=== PATIENT | male | born 1960 | race Caucasian/White ===

== ENCOUNTER 2017-11-23 16:33 | Emergency (ER) | payer MEDICARE, OTHER ==
[~2017-11-23] VITALS: Ht 175.3 cm; Wt 69.5 kg
[~2017-11-23 16:33] MED LIST: ALPR0.25 PO; DIAZ5TAB PO; IBUP-1221 PO; PARO10TA56 PO; QUET25TA PO; ZIPR20CA2 PO
[2017-11-23 17:16] VITALS: BP 126/97
[2017-11-23 17:41] LABS: RAPID INFLUENZA A Negative (Negative); RAPID INFLUENZA B Negative (Negative)
[2017-11-23] MEDS ORDERED: AZITHROMYCIN 250 MG TABLET ONE (18:56)
[2017-11-23] MEDS ORDERED: AZITHROMYCIN 500 MG TABLET PO ONE (19:00)
== END 2017-11-23 19:02 | disposition home or self-care (01) ==
LOC: ED 17:37
DX: J20.9 Acute bronchitis, unspecified (principal); F17.210 Nicotine dependence, cigarettes, uncomplicated
CPT/HCPCS: 71010; 87400; 99285

== ENCOUNTER 2017-11-24 18:36 | Emergency (ER) | payer MEDICARE ==
[~2017-11-24] VITALS: Ht 152.4 cm; Wt 68.6 kg
[2017-11-24] MEDS ORDERED: ACETAMINOPHEN 325 MG TABLET ONE (19:47)
[2017-11-24 19:55] VITALS: BP 138/78
[2017-11-24] MEDS ORDERED: ACETAMINOPHEN 325 MG TABLET PO ONE (20:00)
== END 2017-11-24 20:00 | disposition home or self-care (01) ==
LOC: ED 19:54
DX: J06.9 Acute upper respiratory infection, unspecified (principal)
CPT/HCPCS: 99282

== ENCOUNTER → 2018-01-17 | Outpatient (CLI) | payer MEDICARE ==
[2018-01-17 10:45] LABS: BASOPHILS # (AUTO) 0.02 x10^3/uL (0-0.1); BASOPHILS % (AUTO) 0 % (0-1); EOSINOPHILS # (AUTO) 0.09 x10^3/uL (0-0.4); EOSINOPHILS % (AUTO) 1 % (1-7); LYMPHOCYTES # (AUTO) 1.46 x10^3/uL (1-3.4); LYMPHOCYTES % (AUTO) 17 % (22-44); MD NO; MEAN CORPUSCULAR HEMOGLOBIN 29.9 pg (27.5-34.5); MEAN PLATELET VOLUME 8.3 fL (7.4-10.4); MONOCYTES # (AUTO) 0.59 x10^3/uL (0.2-0.8); MONOCYTES % (AUTO) 7 % (2-9); NEUTROPHILS # (AUTO) 6.37 x10^3/uL (1.8-6.8); NEUTROPHILS % (AUTO) 75 % (42-75); PLATELET COUNT 168 x10^3/uL (130-400); RED BLOOD COUNT 5.17 x10^6/uL (4.38-5.82); RED CELL DISTRIBUTION WIDTH 14.5 % (9.4-14.8)
[2018-01-17 10:56] LABS: CHLORIDE 108 mmol/L (98-107)
[2018-01-17 11:08] LABS: ALANINE AMINOTRANSFERASE 28 U/L (12-78); ALBUMIN 3.9 g/dL (3.4-5.0); ALKALINE PHOSPHATASE 65 U/L (45-117); ANION GAP 5 mmol/L (5-15); BILIRUBIN,TOTAL 0.6 mg/dL (0.2-1.0); CALCIUM 8.4 mg/dL (8.5-10.1); CHOL/HDL RATIO 5.4; CHOLESTEROL, TOTAL 151 mg/dL (140-239); CREATININE 1.08 mg/dL (0.7-1.3); HDL CHOL % 19 % (26-37); HDL CHOLESTEROL (DIRECT) 28 mg/dL (40-60); LDL CHOLESTEROL,CALCULATED 103 mg/dL (54-169); LDL/HDL RATIO 3.7 (0.5-3.0); PSA SCREEN 1.54 ng/mL (0.00-4.00); T4 (THYROXINE) 10.7 mcg/dL (4.5-12.1); TOTAL PROTEIN 7.3 g/dL (6.4-8.2); TRIGLYCERIDES 99 mg/dL (50-200); VLDL CHOLESTEROL 20 mg/dL (0-25)
[2018-01-17 12:00] LABS: MICROSCOPIC AUTO
[2018-01-17 12:01] LABS: CULTURE INDICATED? NO
== END | disposition home or self-care (01) ==
LOC: RAD 10:15
PROVIDERS: ATTEND Family Medicine
DX: Z12.5 Encounter for screening for malignant neoplasm of prostate (principal); J18.9 Pneumonia, unspecified organism; M25.50 Pain in unspecified joint; D64.9 Anemia, unspecified; R53.83 Other fatigue; I10 Essential (primary) hypertension; E03.9 Hypothyroidism, unspecified; N39.9 Disorder of urinary system, unspecified
CPT/HCPCS: 36415; 71046; 80053; 80061; 81001; 84436; 84443; 84481; 85025; G0103

== ENCOUNTER 2018-03-11 16:01 | Emergency (ER) | payer MEDICARE ==
[~2018-03-11] VITALS: Ht 175.3 cm; Wt 69.2 kg
[2018-03-11] MEDS ORDERED: SODIUM CHLORIDE FLUSH 10ML SYR IVF ONE (16:30)
[2018-03-11] MEDS ORDERED: ASPIRIN 81 MG TABLET CHEW PO ONE (16:30)
[2018-03-11 16:38] LABS: INTERNATIONAL NORMALIZED RATIO 0.98 (0.93-1.1); PROTHROMBIN TIME 10.1 Seconds (9.6-11.5)
[2018-03-11 16:43] LABS: ALANINE AMINOTRANSFERASE 41 U/L (12-78); ALBUMIN 4.1 g/dL (3.4-5.0); ANION GAP 8 mmol/L (5-15); CALCIUM 8.8 mg/dL (8.5-10.1); CHLORIDE 104 mmol/L (98-107); CREATININE 1.13 mg/dL (0.7-1.3)
[2018-03-11 16:47] LABS: ALKALINE PHOSPHATASE 62 U/L (45-117); BILIRUBIN,TOTAL 0.5 mg/dL (0.2-1.0); TOTAL PROTEIN 7.5 g/dL (6.4-8.2); TROPONIN I < 0.015 ng/mL (0.000-0.045)
[2018-03-11 16:54] LABS: BASOPHILS # (AUTO) 0.08 x10^3/uL (0-0.1); BASOPHILS % (AUTO) 1 % (0-1); EOSINOPHILS # (AUTO) 0.13 x10^3/uL (0-0.4); EOSINOPHILS % (AUTO) 2 % (1-7); LYMPHOCYTES # (AUTO) 1.88 x10^3/uL (1-3.4); LYMPHOCYTES % (AUTO) 22 % (22-44); MD SCAN; MEAN CORPUSCULAR HEMOGLOBIN 29.7 pg (27.5-34.5); MEAN CORPUSCULAR HGB CONC 33.9 g/dL (33.2-36.2); MEAN CORPUSCULAR VOLUME 87.6 fL (81-97); MEAN PLATELET VOLUME 9.6 fL (7.4-10.4); MONOCYTES # (AUTO) 0.62 x10^3/uL (0.2-0.8); MONOCYTES % (AUTO) 7 % (2-9); NEUTROPHILS # (AUTO) 5.98 x10^3/uL (1.8-6.8); NEUTROPHILS % (AUTO) 69 % (42-75); PLATELET COUNT 164 x10^3/uL (130-400); RED CELL DISTRIBUTION WIDTH 15.9 % (9.4-14.8)
[2018-03-11] MEDS ORDERED: ASPIRIN 81 MG TABLET CHEW ONE (17:42)
[2018-03-11 18:50] VITALS: BP 117/94
== END 2018-03-11 18:59 | disposition home or self-care (01) ==
LOC: ED 18:53
DX: J44.9 Chronic obstructive pulmonary disease, unspecified (principal); F41.9 Anxiety disorder, unspecified; G40.909 Epilepsy, unspecified, not intractable, without status epilepticus; Z87.891 Personal history of nicotine dependence
CPT/HCPCS: 36415; 71045; 80053; 84484; 85025; 85610; 93005; 99285

== ENCOUNTER 2018-04-08 17:49 | Emergency (ER) | payer MEDICARE ==
[~2018-04-08] VITALS: Ht 175.3 cm; Wt 72.7 kg
[2018-04-08 17:56] VITALS: BP 117/77
[2018-04-08] MEDS ORDERED: PARO10TA56 PO (18:43)
[2018-04-08] MEDS ORDERED: MUSCLE RELAXER (18:44)
[2018-04-08] MEDS ORDERED: KETOROLAC 30 MG/1 ML ONE (19:18)
[2018-04-08] MEDS ORDERED: HYDROcodone/APAP 5/325 TABLET ONE (19:18)
[2018-04-08] MEDS ORDERED: HYDROcodone/APAP 5/325 TABLET PO ONE (19:30)
[2018-04-08] MEDS ORDERED: KETOROLAC 30 MG/1 ML IM ONE (19:30)
== END 2018-04-08 19:47 | disposition home or self-care (01) ==
LOC: ED 19:41
DX: M51.36 Other intervertebral disc degeneration, lumbar region (principal); J44.9 Chronic obstructive pulmonary disease, unspecified; G40.909 Epilepsy, unspecified, not intractable, without status epilepticus
CPT/HCPCS: 72110; 96372; 99284; J1885

== ENCOUNTER 2018-10-15 12:37 | Emergency (ER) | payer MEDICARE ==
[~2018-10-15] VITALS: Ht 175.3 cm; Wt 70.0 kg
[~2018-10-15 12:37] MED LIST changes: +MUSCLE RELAXER
[2018-10-15] MEDS ORDERED: SODIUM CHLORIDE FLUSH 10ML SYR IVF ONE (14:00)
[2018-10-15 14:21] LABS: ALBUMIN 4.2 g/dL (3.4-5.0); ANION GAP 3 mmol/L (5-15); CALCIUM 8.6 mg/dL (8.5-10.1); CHLORIDE 106 mmol/L (98-107); CREATININE 1.01 mg/dL (0.7-1.3)
[2018-10-15 14:24] LABS: MICROSCOPIC NOT IND
[2018-10-15 14:41] LABS: CULTURE INDICATED? NO
[2018-10-15] MEDS ORDERED: OMNIPAQUE 350 MG/ML, 75ML BOTTLE ONE (15:02)
[2018-10-15 15:31] LABS: MEAN CORPUSCULAR HEMOGLOBIN 30.2 pg (27.5-34.5); MEAN CORPUSCULAR HGB CONC 33.8 g/dL (33.2-36.2); MEAN CORPUSCULAR VOLUME 89.3 fL (81-97); RED BLOOD COUNT 5.25 x10^6/uL (4.38-5.82)
[2018-10-15 15:32] LABS: MEAN PLATELET VOLUME 8.6 fL (7.4-10.4); PLATELET COUNT 196 x10^3/uL (130-400)
[2018-10-15 15:33] LABS: MD SCAN
[2018-10-15 15:34] LABS: BASOPHILS # (AUTO) 0.03 x10^3/uL (0-0.1); BASOPHILS % (AUTO) 0 % (0-1); EOSINOPHILS # (AUTO) 0.11 x10^3/uL (0-0.4); EOSINOPHILS % (AUTO) 1 % (1-7); LYMPHOCYTES % (AUTO) 15 % (22-44); MONOCYTES # (AUTO) 0.58 x10^3/uL (0.2-0.8); MONOCYTES % (AUTO) 5 % (2-9); NEUTROPHILS # (AUTO) 8.59 x10^3/uL (1.8-6.8); NEUTROPHILS % (AUTO) 78 % (42-75)
[2018-10-15 15:40] VITALS: BP 128/71
== END 2018-10-15 15:43 | disposition home or self-care (01) ==
LOC: ED 15:13
DX: J20.8 Acute bronchitis due to other specified organisms (principal); B34.9 Viral infection, unspecified
CPT/HCPCS: 36415; 71046; 71260; 80048; 81003; 82040; 85025; 99285; Q9967

== ENCOUNTER 2018-10-23 14:09 | Emergency (ER) | payer MEDICARE ==
[~2018-10-23] VITALS: Ht 175.3 cm; Wt 68.6 kg
[2018-10-23 15:00] LABS: BASOPHILS # (AUTO) 0.05 x10^3/uL (0-0.1); BASOPHILS % (AUTO) 1 % (0-1); EOSINOPHILS # (AUTO) 0.04 x10^3/uL (0-0.4); EOSINOPHILS % (AUTO) 0 % (1-7); LYMPHOCYTES % (AUTO) 13 % (22-44); MD NO; MEAN CORPUSCULAR HEMOGLOBIN 30.6 pg (27.5-34.5); MEAN PLATELET VOLUME 9.2 fL (7.4-10.4); MONOCYTES # (AUTO) 0.78 x10^3/uL (0.2-0.8); MONOCYTES % (AUTO) 7 % (2-9); NEUTROPHILS # (AUTO) 8.35 x10^3/uL (1.8-6.8); NEUTROPHILS % (AUTO) 79 % (42-75); PLATELET COUNT 175 x10^3/uL (130-400); RED BLOOD COUNT 5.39 x10^6/uL (4.38-5.82); RED CELL DISTRIBUTION WIDTH 14.8 % (9.4-14.8)
[2018-10-23 15:08] LABS: ALBUMIN 4.1 g/dL (3.4-5.0); ANION GAP 6 mmol/L (5-15); CALCIUM 8.5 mg/dL (8.5-10.1); CHLORIDE 107 mmol/L (98-107); CREATININE 1.24 mg/dL (0.7-1.3)
[2018-10-23 15:13] LABS: RAPID INFLUENZA A Negative (Negative); RAPID INFLUENZA B Negative (Negative)
[2018-10-23 15:42] VITALS: BP 124/88
== END 2018-10-23 15:44 | disposition home or self-care (01) ==
LOC: ED 14:39
DX: B34.9 Viral infection, unspecified (principal); J44.9 Chronic obstructive pulmonary disease, unspecified
CPT/HCPCS: 36415; 71046; 80048; 82040; 85025; 87400; 99284

== ENCOUNTER 2018-10-25 12:30 | Emergency (ER) | payer MEDICARE ==
[~2018-10-25] VITALS: Ht 175.3 cm; Wt 67.9 kg
[2018-10-25 13:24] LABS: MEAN CORPUSCULAR HEMOGLOBIN 29.8 pg (27.5-34.5); MEAN CORPUSCULAR HGB CONC 33.3 g/dL (33.2-36.2); MEAN CORPUSCULAR VOLUME 89.4 fL (81-97); MEAN PLATELET VOLUME 9.1 fL (7.4-10.4); PLATELET COUNT 178 x10^3/uL (130-400); RED BLOOD COUNT 5.23 x10^6/uL (4.38-5.82)
[2018-10-25 13:31] LABS: ALANINE AMINOTRANSFERASE 39 U/L (12-78); ALBUMIN 4.1 g/dL (3.4-5.0); ANION GAP 7 mmol/L (5-15); CALCIUM 8.4 mg/dL (8.5-10.1); CHLORIDE 107 mmol/L (98-107); CREATININE 1.06 mg/dL (0.7-1.3)
[2018-10-25 13:32] LABS: ALKALINE PHOSPHATASE 61 U/L (45-117); BILIRUBIN,TOTAL 0.7 mg/dL (0.2-1.0); TOTAL PROTEIN 7.4 g/dL (6.4-8.2)
[2018-10-25 13:38] LABS: BASOPHILS # (AUTO) 0.03 x10^3/uL (0-0.1); BASOPHILS % (AUTO) 0 % (0-1); EOSINOPHILS # (AUTO) 0.05 x10^3/uL (0-0.4); EOSINOPHILS % (AUTO) 0 % (1-7); LYMPHOCYTES % (AUTO) 12 % (22-44); MD SCAN; MONOCYTES # (AUTO) 0.51 x10^3/uL (0.2-0.8); MONOCYTES % (AUTO) 4 % (2-9); NEUTROPHILS # (AUTO) 11.58 x10^3/uL (1.8-6.8); NEUTROPHILS % (AUTO) 84 % (42-75)
[2018-10-25 14:18] VITALS: BP 139/88
[2018-10-25] MEDS ORDERED: HYDROcodone/APAP 5/325 TABLET PO ONE (14:30)
[2018-10-25 14:36] LABS: MICROSCOPIC NOT IND
[2018-10-25 14:45] LABS: CULTURE INDICATED? NO
[2018-10-25] MEDS ORDERED: HYDROcodone/APAP 5/325 TABLET ONE (15:00)
[2018-10-28] MEDS ORDERED: IBUP-1223 PO (14:03)
[2018-10-28] MEDS ORDERED: ALBU18HF IH (14:03)
== END 2018-10-25 15:45 | disposition home or self-care (01) ==
LOC: ED 15:00
DX: S39.012A Strain of muscle, fascia and tendon of lower back, initial encounter (principal); F17.200 Nicotine dependence, unspecified, uncomplicated; X58.XXXA Exposure to other specified factors, initial encounter; Y93.89 Activity, other specified; Y92.89 Other specified places as the place of occurrence of the external cause; Y99.8 Other external cause status; J44.9 Chronic obstructive pulmonary disease, unspecified
CPT/HCPCS: 36415; 80053; 81003; 85025; 99283

== ENCOUNTER 2018-12-11 09:17 | Emergency (ER) | payer MEDICARE ==
[~2018-12-11] VITALS: Ht 175.3 cm; Wt 66.9 kg
[~2018-12-11 09:17] MED LIST changes: +ALBU18HF IH; +IBUP-1223 PO
[2018-12-11 09:31] VITALS: BP 155/88
[2018-12-11] MEDS ORDERED: DIPHENHYDRAMINE 25 MG CAPSULE PO ONE (10:00)
[2018-12-11] MEDS ORDERED: FAMOTIDINE 20 MG TABLET PO ONE (10:00)
[2018-12-11] MEDS ORDERED: FAMOTIDINE 20 MG TABLET ONE (10:04)
[2018-12-11] MEDS ORDERED: DIPHENHYDRAMINE 25 MG CAPSULE ONE (10:04)
--- NOTE | 2018-12-11 10:06 | NUR ---
CONTACT WITH PT, 58 YR OLD MALE HERE WITH C/O "I HAVE THIS BURNING SENSATION, ITCHING. MOSTLY MY HEAD AREA DOWN IN MY NECK AND SHOULDER AREA" HAS BEEN WELL OVER A MONTH OR SO. PT THE NO VISIBLE RASH NOTED.
--- NOTE | 2018-12-11 10:20 | NUR ---
JUAN BRIGHT AT BEDSIDE.
[2018-12-11 10:31] LABS: MEAN CORPUSCULAR HEMOGLOBIN 30.6 pg (27.5-34.5); MEAN CORPUSCULAR HGB CONC 33.9 g/dL (33.2-36.2); MEAN CORPUSCULAR VOLUME 90.2 fL (81-97); MEAN PLATELET VOLUME 8.7 fL (7.4-10.4); PLATELET COUNT 146 x10^3/uL (130-400); RED BLOOD COUNT 5.24 x10^6/uL (4.38-5.82); RED CELL DISTRIBUTION WIDTH 14.9 % (9.4-14.8)
[2018-12-11 10:32] LABS: BASOPHILS # (AUTO) 0.05 x10^3/uL (0-0.1); BASOPHILS % (AUTO) 1 % (0-1); EOSINOPHILS # (AUTO) 0.07 x10^3/uL (0-0.4); EOSINOPHILS % (AUTO) 1 % (1-7); LYMPHOCYTES # (AUTO) 1.43 x10^3/uL (1-3.4); LYMPHOCYTES % (AUTO) 15 % (22-44); MD SCAN; MONOCYTES # (AUTO) 0.51 x10^3/uL (0.2-0.8); MONOCYTES % (AUTO) 6 % (2-9); NEUTROPHILS # (AUTO) 7.25 x10^3/uL (1.8-6.8); NEUTROPHILS % (AUTO) 78 % (42-75)
[2018-12-11 10:35] LABS: ALBUMIN 4.1 g/dL (3.4-5.0); ANION GAP 6 mmol/L (5-15); CALCIUM 8.8 mg/dL (8.5-10.1); CHLORIDE 106 mmol/L (98-107)
[2018-12-11 10:48] LABS: ALANINE AMINOTRANSFERASE 27 U/L (12-78); ALKALINE PHOSPHATASE 64 U/L (45-117); BILIRUBIN,TOTAL 0.8 mg/dL (0.2-1.0); CREATININE 0.99 mg/dL (0.7-1.3); TOTAL PROTEIN 7.4 g/dL (6.4-8.2)
--- NOTE | 2018-12-11 12:23 | NUR ---
FLOAT RN ASSISTING PRIMARY RN BENJAMIN WITH DISCHARGE ONLY. IN TO DISCHARGE PT, PT NOT IN ROOM, ELOPED. DISCUSSED WITH PRIMARY RN BENJAMIN AND DIRECTOR OF EMERGENCY NURSING MELINA CUELLAR. DISCUSSED WITH JUAN BRIGHT, AWARE. PT CALLED AT LISTED CONTACT NUMBER PER JUAN BRIGHT REQUEST AND MESSAGE LEFT FOR PT TO RETURN CALL. JUAN BRIGHT WOULD LIKE PT TO RETURN TO GET PRESCRIPTIONS FOR PT COMFORT. PRIMARY RN NOTIFIED OF POC, AND THAT PT WAS CALLED AND MSG LEFT.
== END 2018-12-11 12:27 | disposition left against medical advice (07) ==
LOC: ED 10:59
DX: L29.9 Pruritus, unspecified (principal); J44.9 Chronic obstructive pulmonary disease, unspecified; G40.909 Epilepsy, unspecified, not intractable, without status epilepticus
CPT/HCPCS: 36415; 80053; 85025; 99284; J7512; Q0163

== ENCOUNTER 2018-12-20 14:17 | Emergency (ER) | payer MEDICARE ==
[~2018-12-20] VITALS: Ht 175.3 cm; Wt 66.0 kg
[2018-12-20 14:23] VITALS: BP 119/82
[2018-12-20] MEDS ORDERED: KETOROLAC 30 MG/1 ML ONE (14:55)
[2018-12-20] MEDS ORDERED: METHOCARBAMOL 750 MG TABLET ONE (14:55)
[2018-12-20] MEDS ORDERED: METHOCARBAMOL 750 MG TABLET PO ONE (15:00)
[2018-12-20] MEDS ORDERED: KETOROLAC 30 MG/1 ML IM ONE (15:00)
== END 2018-12-20 16:25 | disposition home or self-care (01) ==
LOC: ED 14:41
DX: S33.5XXA Sprain of ligaments of lumbar spine, initial encounter (principal); J44.9 Chronic obstructive pulmonary disease, unspecified; F17.200 Nicotine dependence, unspecified, uncomplicated; Z85.841 Personal history of malignant neoplasm of brain; X58.XXXA Exposure to other specified factors, initial encounter; Y93.89 Activity, other specified; Y92.89 Other specified places as the place of occurrence of the external cause; Y99.8 Other external cause status
CPT/HCPCS: 72110; 96372; 99283; J1885

== ENCOUNTER 2018-12-31 15:30 | Emergency (ER) | payer MEDICARE ==
[~2018-12-31] VITALS: Ht 175.3 cm; Wt 67.1 kg
[2018-12-31] MEDS ORDERED: DIPHENHYDRAMINE 50 MG/ML, 1ML IVPush ONE (16:00)
[2018-12-31] MEDS ORDERED: METOCLOPRAMIDE 5 MG/ML, 2ML IVPush ONE (16:00)
[2018-12-31] MEDS ORDERED: SODIUM CHLORIDE FLUSH 10ML SYR IVF ONE (16:00)
[2018-12-31] MEDS ORDERED: DIPHENHYDRAMINE 50 MG/ML, 1ML ONE (16:23)
[2018-12-31] MEDS ORDERED: METOCLOPRAMIDE 5 MG/ML, 2ML ONE (16:23)
[2018-12-31 16:27] LABS: BASOPHILS # (AUTO) 0.02 x10^3/uL (0-0.1); BASOPHILS % (AUTO) 0 % (0-1); EOSINOPHILS # (AUTO) 0.09 x10^3/uL (0-0.4); EOSINOPHILS % (AUTO) 1 % (1-7); LYMPHOCYTES # (AUTO) 1.46 x10^3/uL (1-3.4); LYMPHOCYTES % (AUTO) 16 % (22-44); MD NO; MEAN CORPUSCULAR HEMOGLOBIN 30.6 pg (27.5-34.5); MEAN CORPUSCULAR HGB CONC 34.2 g/dL (33.2-36.2); MEAN CORPUSCULAR VOLUME 89.5 fL (81-97); MONOCYTES # (AUTO) 0.59 x10^3/uL (0.2-0.8); MONOCYTES % (AUTO) 6 % (2-9); NEUTROPHILS # (AUTO) 7.15 x10^3/uL (1.8-6.8); NEUTROPHILS % (AUTO) 77 % (42-75); PLATELET COUNT 150 x10^3/uL (130-400); RED BLOOD COUNT 4.96 x10^6/uL (4.38-5.82); RED CELL DISTRIBUTION WIDTH 15.3 % (9.4-14.8)
[2018-12-31 16:29] LABS: HCT (SEDRATE) 44.4 % (39.2-51.8)
[2018-12-31 16:34] LABS: ALBUMIN 3.9 g/dL (3.4-5.0); ANION GAP 7 mmol/L (5-15); CALCIUM 8.9 mg/dL (8.5-10.1); CHLORIDE 110 mmol/L (98-107); CREATININE 0.89 mg/dL (0.7-1.3)
[2018-12-31 17:24] VITALS: BP 109/74
--- NOTE | 2018-12-31 17:25 | NUR ---
GÓMEZ DECREASED TO 4/10 FROM 8/10. NO N/V, BURNING, OR ITCHING. VSS, PT READY FOR DISCHARGE.
== END 2018-12-31 17:53 | disposition home or self-care (01) ==
LOC: ED 17:47
DX: G44.221 Chronic tension-type headache, intractable (principal); H53.8 Other visual disturbances; J44.9 Chronic obstructive pulmonary disease, unspecified; F41.1 Generalized anxiety disorder; F32.9 Major depressive disorder, single episode, unspecified; G40.909 Epilepsy, unspecified, not intractable, without status epilepticus; F17.200 Nicotine dependence, unspecified, uncomplicated; G89.29 Other chronic pain
CPT/HCPCS: 36415; 70450; 80048; 82040; 85025; 85651; 96374; 96375; 99284; J1200; J2765

== ENCOUNTER 2019-11-30 14:01 | Emergency (ER) | payer MEDICARE ==
[~2019-11-30] VITALS: Ht 175.3 cm; Wt 70.0 kg
[~2019-11-30 14:01] MED LIST changes: +ACET325T26 PO; +CALC1TAB68 PO; +CEFU500T50 PO; -QUET25TA PO; +QUET25TA7 PO
[2019-11-30 15:08] VITALS: BP 118/83
== END 2019-11-30 15:59 | disposition home or self-care (01) ==
LOC: ED 15:53
DX: J01.80 Other acute sinusitis (principal); B97.89 Other viral agents as the cause of diseases classified elsewhere; G40.909 Epilepsy, unspecified, not intractable, without status epilepticus
CPT/HCPCS: 71046; 99283

== ENCOUNTER 2019-12-29 19:02 | Emergency (ER) | payer MEDICARE ==
[~2019-12-29] VITALS: Ht 177.8 cm; Wt 88.0 kg
[2019-12-29 19:57] LABS: ALANINE AMINOTRANSFERASE 18 U/L (12-78); ALBUMIN 3.8 g/dL (3.4-5.0); ANION GAP 9 mmol/L (5-15); CALCIUM 8.6 mg/dL (8.5-10.1); CHLORIDE 109 mmol/L (98-107); CREATININE 0.91 mg/dL (0.7-1.3)
[2019-12-29 20:00] LABS: ALKALINE PHOSPHATASE 49 U/L (45-117); BILIRUBIN,TOTAL 0.6 mg/dL (0.2-1.0); TOTAL PROTEIN 6.9 g/dL (6.4-8.2)
[2019-12-29 20:26] LABS: MEAN CORPUSCULAR HEMOGLOBIN 29.8 pg (27.5-34.5); MEAN CORPUSCULAR HGB CONC 33.7 g/dL (33.2-36.2); MEAN CORPUSCULAR VOLUME 88.5 fL (81-97); RED BLOOD COUNT 4.89 x10^6/uL (4.38-5.82); RED CELL DISTRIBUTION WIDTH 15.1 % (9.4-14.8)
[2019-12-29 20:29] LABS: BASOPHILS # (AUTO) 0.02 x10^3/uL (0-0.1); BASOPHILS % (AUTO) 1 % (0-1); EOSINOPHILS # (AUTO) 0.05 x10^3/uL (0-0.4); EOSINOPHILS % (AUTO) 1 % (1-7); LYMPHOCYTES # (AUTO) 0.92 x10^3/uL (1-3.4); LYMPHOCYTES % (AUTO) 22 % (22-44); MD MORPH REVIEW ONLY; MEAN PLATELET VOLUME 8.7 fL (7.4-10.4); MONOCYTES # (AUTO) 0.25 x10^3/uL (0.2-0.8); MONOCYTES % (AUTO) 6 % (2-9); NEUTROPHILS % (AUTO) 70 % (42-75)
[2019-12-29 20:31] LABS: PLATELET COUNT 180 x10^3/uL (130-400)
[2019-12-29 20:33] LABS: <RBC MORPHOLOGY> NORMAL
[2019-12-29 20:34] LABS: <PLATELET ESTIMATE> ADEQUATE; GIANT PLATELETS 1+; LARGE PLATELETS 1+
[2019-12-29 21:36] VITALS: BP 126/74
== END 2019-12-29 21:39 | disposition home or self-care (01) ==
LOC: ED 21:33
DX: F33.0 Major depressive disorder, recurrent, mild (principal); R11.2 Nausea with vomiting, unspecified; F10.10 Alcohol abuse, uncomplicated; J44.9 Chronic obstructive pulmonary disease, unspecified; F17.210 Nicotine dependence, cigarettes, uncomplicated; Y90.9 Presence of alcohol in blood, level not specified
CPT/HCPCS: 36415; 80053; 80307; 83690; 85025; 99284

== ENCOUNTER 2021-01-07 13:56 | Emergency (ER) | payer MEDICARE ==
[~2021-01-07] VITALS: Ht 175.3 cm; Wt 78.2 kg
--- NOTE | 2021-01-07 14:25 | NUR ---
PA and myself at bedside. [facility]. Pt removed of all belonignings. placed in seiure oprecautions on SPO2 and BP monitor. Given a cup of water.
--- NOTE | 2021-01-07 14:38 | NUR ---
pt away to xray with seizure pads in place
[2021-01-07 14:53] LABS: BASOPHILS % (AUTO) 0 % (0-1); EOSINOPHILS % (AUTO) 0 % (1-7); LYMPHOCYTES % (AUTO) 18 % (22-44); MEAN CORPUSCULAR HGB CONC 34.2 g/dL (33.2-36.2); MEAN PLATELET VOLUME 8.6 fL (7.4-10.4); MONOCYTES % (AUTO) 20 % (2-9); NEUTROPHILS % (AUTO) 61 % (42-75); PLATELET COUNT 93 x10^3/uL (130-400); RED BLOOD COUNT 5.11 x10^6/uL (4.38-5.82); RED CELL DISTRIBUTION WIDTH 15.3 % (9.4-14.8)
[2021-01-07 14:59] LABS: MD NO
[2021-01-07 15:04] LABS: ALANINE AMINOTRANSFERASE 33 U/L (12-78); ALBUMIN 4.4 g/dL (3.4-5.0); ANION GAP 8 mmol/L (5-15); CHLORIDE 108 mmol/L (98-107); CREATININE 1.15 mg/dL (0.7-1.3); SALICYLATE LEVEL 3.7 mg/dL (2.8-20.0)
[2021-01-07 15:06] LABS: ALKALINE PHOSPHATASE 57 U/L (45-117); BILIRUBIN,TOTAL 0.7 mg/dL (0.2-1.0); TOTAL PROTEIN 7.8 g/dL (6.4-8.2)
--- NOTE | 2021-01-07 15:10 | NUR ---
pt provided urine sample. vital signs checked. pt calm and cooperative
[2021-01-07 16:03] LABS: MICROSCOPIC AUTO
[2021-01-07 16:15] LABS: AMPHETAMINE SCREEN, URINE Negative (Negative); BARBITURATE SCREEN, URINE Negative (Negative); BENZODIAZEPINE SCREEN, URINE Negative (Negative); CANNABINOID SCREEN, URINE Negative (Negative); COCAINE SCREEN, URINE Negative (Negative); METHADONE SCREEN, URINE Negative (Negative); OPIATE SCREEN, URINE Negative (Negative)
--- NOTE | 2021-01-07 16:40 | NUR ---
TASK RN: PT PROVIDED WITH MEAL TRAY AT THIS TIME
[2021-01-07] MEDS ORDERED: DIAZ2TAB PO (17:10)
--- NOTE | 2021-01-07 17:52 | NUR ---
police liaison in patients room. pt aware of admission to [facility].
--- NOTE | 2021-01-07 17:55 | NUR ---
rapid covid received and sent.
--- NOTE | 2021-01-07 19:53 | NUR ---
REPORT GIVEN TO KEVIN WAGNER AT [facility]
--- NOTE | 2021-01-07 20:05 | NUR ---
PATIENT TRANSFERRED TO [facility] VIA WITH 2 RN'S. ALL PERSONAL BELONGINGS WITH PATIENT. AMBULATED TO WITH STEADY GAIT.
[2021-01-07 20:13] VITALS: BP 106/72
[2021-01-07] MEDS ORDERED: LORazepam 2 MG/ML, 1ML IVPush PRN (20:30)
[2021-01-08] MEDS ORDERED: IBUP-1223 PO (18:00)
== END 2021-01-07 20:17 ==
LOC: ED 14:50
DX: R56.9 Unspecified convulsions (principal); R41.9 Unspecified symptoms and signs involving cognitive functions and awareness; R00.0 Tachycardia, unspecified; J44.9 Chronic obstructive pulmonary disease, unspecified; F17.200 Nicotine dependence, unspecified, uncomplicated
CPT/HCPCS: 36415; 70450; 80053; 80299; 80307; 80320; 80329; 81001; 85025; 93005; 99285; G0480

== ENCOUNTER 2021-01-07 18:25 | Inpatient (IN) | payer MEDICARE ==
[~2021-01-07] VITALS: Ht 175.3 cm; Wt 78.6 kg
[~2021-01-07 18:25] MED LIST changes: +DIAZ2TAB PO
[2021-01-07 20:00] VITALS: BP 122/84
[2021-01-07] MEDS ORDERED: DOCUSATE 100 MG CAPSULE PO PRN (22:30)
[2021-01-07] MEDS ORDERED: NICOTINE 7 MG/24 HR PATCH.TD24 TD SCH (22:30)
[2021-01-07] MEDS ORDERED: POLYETHYLENE GLYCOL 17 GM PACKET PO PRN (22:30)
[2021-01-07] MEDS ORDERED: PLEASE ENTER HEIGHT AND WEIGHT MC SCH (22:30)
[2021-01-07] MEDS ORDERED: BISACODYL 10 MG SUPP PR PRN (22:30)
[2021-01-07] MEDS ORDERED: ACETAMINOPHEN 325 MG TABLET PO PRN (22:30)
[2021-01-07] MEDS ORDERED: ONDANSETRON ODT 4 MG PO PRN (22:30)
[2021-01-07 22:45] VITALS: BP 122/84
[2021-01-08] MEDS: HYDROXYZINE PAMOATE 50MG CAP PO PRN ×2 (03:55→20:05)
[2021-01-08 07:02] LABS: FREE T4 (FREE THYROXINE) 1.07 ng/dL (0.76-1.46); LDL/HDL RATIO 3.9 (0.5-3.0)
[2021-01-08 07:33] VITALS: BP 147/96
[2021-01-08] MEDS: NICOTINE 7 MG/24 HR PATCH.TD24 TD SCH (08:52)
[2021-01-08] MEDS: LIDODERM 5% PATCH TD SCH (13:41)
[2021-01-08] MEDS: IBUPROFEN 200 MG TABLET PO PRN (13:42)
[2021-01-08] MEDS ORDERED: IBUP-1223 PO (18:00)
[2021-01-08 19:45] VITALS: BP 110/78
[2021-01-09 07:27] VITALS: BP 126/82
[2021-01-09] MEDS: NICOTINE 7 MG/24 HR PATCH.TD24 TD SCH (09:17)
[2021-01-09] MEDS: IBUPROFEN 200 MG TABLET PO PRN ×2 (09:18→22:17)
[2021-01-09] MEDS: LIDODERM 5% PATCH TD SCH (13:25)
[2021-01-09] MEDS: LORazepam 1MG TABLET PO PRN (14:25)
[2021-01-09 19:35] VITALS: BP 111/74
[2021-01-10 07:26] VITALS: BP 128/86
[2021-01-10] MEDS: NICOTINE 7 MG/24 HR PATCH.TD24 TD SCH (08:36)
[2021-01-10] MEDS: LORazepam 1MG TABLET PO PRN (08:36)
[2021-01-10] MEDS: LIDODERM 5% PATCH TD SCH (12:28)
[2021-01-10] MEDS: IBUPROFEN 200 MG TABLET PO PRN (12:28)
[2021-01-10] MEDS: HYDROXYZINE PAMOATE 50MG CAP PO PRN (14:59)
[2021-01-10 19:44] VITALS: BP_SYST 116; BP_SYST 98; BP_DIAS 64; BP_DIAS 65
[2021-01-11 07:33] VITALS: BP 118/81
[2021-01-11] MEDS: NICOTINE 7 MG/24 HR PATCH.TD24 TD SCH (08:08)
[2021-01-11] MEDS: PAROXETINE 10 MG TABLET PO SCH (08:08)
[2021-01-11] MEDS: HYDROXYZINE PAMOATE 50MG CAP PO PRN (08:08)
[2021-01-11] MEDS: LORazepam 1MG TABLET PO PRN ×2 (11:48→20:19)
[2021-01-11] MEDS: LIDODERM 5% PATCH TD SCH (13:44)
[2021-01-11 19:15] VITALS: BP 106/74
[2021-01-12 07:40] VITALS: BP 121/83
[2021-01-12] MEDS: PAROXETINE 10 MG TABLET PO SCH (07:55)
[2021-01-12] MEDS: NICOTINE 7 MG/24 HR PATCH.TD24 TD SCH (07:56)
[2021-01-12] MEDS: IBUPROFEN 200 MG TABLET PO PRN ×2 (10:08→21:07)
[2021-01-12] MEDS: LORazepam 1MG TABLET PO PRN (10:53)
[2021-01-12] MEDS: LIDODERM 5% PATCH TD SCH (12:57)
[2021-01-12 20:02] VITALS: BP 143/90
[2021-01-12] MEDS: HYDROXYZINE PAMOATE 50MG CAP PO PRN (21:07)
[2021-01-13 07:24] VITALS: BP 119/78
[2021-01-13] MEDS: NICOTINE 7 MG/24 HR PATCH.TD24 TD SCH (07:43)
[2021-01-13] MEDS: PAROXETINE 20 MG TABLET PO SCH (07:43)
[2021-01-13] MEDS: IBUPROFEN 200 MG TABLET PO PRN ×2 (09:10→19:47)
[2021-01-13] MEDS: LIDODERM 5% PATCH TD SCH (12:52)
[2021-01-13] MEDS: HYDROXYZINE PAMOATE 50MG CAP PO PRN ×2 (14:58→19:46)
[2021-01-13 19:10] VITALS: BP 101/64
[2021-01-14 07:10] VITALS: BP 143/89
[2021-01-14] MEDS: IBUPROFEN 200 MG TABLET PO PRN ×2 (07:54→21:04)
[2021-01-14] MEDS: NICOTINE 7 MG/24 HR PATCH.TD24 TD SCH (07:54)
[2021-01-14] MEDS: PAROXETINE 20 MG TABLET PO SCH (07:54)
[2021-01-14] MEDS: LORazepam 1MG TABLET PO PRN ×2 (13:41→21:04)
[2021-01-14] MEDS: LIDODERM 5% PATCH TD SCH (13:41)
[2021-01-14 19:46] VITALS: BP 129/86
[2021-01-15] MEDS: IBUPROFEN 200 MG TABLET PO PRN ×2 (07:52→19:28)
[2021-01-15] MEDS: PAROXETINE 20 MG TABLET PO SCH (07:52)
[2021-01-15] MEDS: NICOTINE 7 MG/24 HR PATCH.TD24 TD SCH (07:53)
[2021-01-15 08:00] VITALS: BP 139/99
[2021-01-15] MEDS: LORazepam 1MG TABLET PO PRN (09:34)
[2021-01-15] MEDS: LIDODERM 5% PATCH TD SCH (15:01)
[2021-01-15 19:30] VITALS: BP 120/81
[2021-01-15] MEDS: HYDROXYZINE PAMOATE 50MG CAP PO PRN (20:17)
[2021-01-16 07:27] VITALS: BP 132/93
[2021-01-16] MEDS: PAROXETINE 20 MG TABLET PO SCH (07:54)
[2021-01-16] MEDS: NICOTINE 7 MG/24 HR PATCH.TD24 TD SCH (07:54)
[2021-01-16] MEDS: IBUPROFEN 200 MG TABLET PO PRN ×2 (07:55→19:58)
[2021-01-16] MEDS: HYDROXYZINE PAMOATE 50MG CAP PO PRN ×2 (09:00→19:58)
[2021-01-16] MEDS: LIDODERM 5% PATCH TD SCH (13:04)
[2021-01-16] MEDS ORDERED: HYDR50CA2 PO (14:32)
[2021-01-16] MEDS ORDERED: IBUP-1902 PO (14:32)
[2021-01-16] MEDS ORDERED: NICO-485 TD (14:32)
[2021-01-16] MEDS ORDERED: PARO20TA4 PO (14:32)
[2021-01-16 19:25] VITALS: BP 122/82
[2021-01-17 07:34] VITALS: BP 128/86
[2021-01-17] MEDS: HYDROXYZINE PAMOATE 50MG CAP PO PRN (08:04)
[2021-01-17] MEDS: PAROXETINE 20 MG TABLET PO SCH (08:04)
[2021-01-17] MEDS: NICOTINE 7 MG/24 HR PATCH.TD24 TD SCH (08:04)
[2021-01-17] MEDS: IBUPROFEN 200 MG TABLET PO PRN (08:05)
[2021-01-17] MEDS: LIDODERM 5% PATCH TD SCH (13:00)
== END 2021-01-17 14:24 | disposition home or self-care (01) | DRG 885 ==
LOC: 3E 20:46
PROVIDERS: ADMIT Psychiatry & Neurology Psychosomatic Medicine; ATTEND Psychiatry & Neurology Psychosomatic Medicine
DX: F33.3 Major depressive disorder, recurrent, severe with psychotic symptoms (principal); R45.851 Suicidal ideations; F17.200 Nicotine dependence, unspecified, uncomplicated; G93.9 Disorder of brain, unspecified; F41.1 Generalized anxiety disorder; M54.9 Dorsalgia, unspecified; J44.9 Chronic obstructive pulmonary disease, unspecified; Z90.49 Acquired absence of other specified parts of digestive tract; Z79.899 Other long term (current) drug therapy; Z82.49 Family history of ischemic heart disease and other diseases of the circulatory system; Z20.822 Contact with and (suspected) exposure to COVID-19
CPT/HCPCS: 71045; 80061; 82607; 82962; 84439; 84443; 87426

== ENCOUNTER → 2021-04-17 | Outpatient (CLI) | payer MEDICARE ==
[~2021-04-17] MED LIST changes: +HYDR50CA2 PO; +IBUP-1902 PO; +NICO-485 TD; +PARO20TA4 PO
== END | disposition home or self-care (01) ==
LOC: CARD 08:06
PROVIDERS: ATTEND Psychiatry & Neurology Neurology
DX: G40.909 Epilepsy, unspecified, not intractable, without status epilepticus (principal)
CPT/HCPCS: 95819